=== PATIENT | female | born 1990 | race African-American/Black ===

== ENCOUNTER 2017-09-26 21:48 | Emergency (ER) | payer OTHER ==
[~2017-09-26] VITALS: Ht 162.6 cm; Wt 65.0 kg
[~2017-09-26 21:48] MED LIST: DEPO150I IM
[2017-09-26 21:52] VITALS: BP 122/68; PULSE 83; RESP 16; TEMP 98.7; O2SAT 100
--- NOTE | 2017-09-26 22:44 | PD ---
HPI Chief Complaint: Respiratory Symptoms Time Seen by Provider: 22:23 (João Grullon) Time Seen by Provider: 22:49 (Iram Boss MD) Travel History International Travel<30 days: No Contact w/Intl Traveler<30days: No Traveled to known affect area: No (João Grullon) International Travel<30 days: No Contact w/Intl Traveler<30days: No Traveled to known affect area: No (Iram Boss MD) History of Present Illness HPI 27-year-old female presents for evaluation of dyspnea. She reports that she has been having dyspnea for several months, for started in January 2017. She reports that she was seen multiple times at urgent care centers and was diagnosed with upper respiratory infections. She reports that 2 weeks ago she traveled to [facility] in [place] and was diagnosed with pulmonary embolism. She was started on Eliquis. She reports that initially her symptoms improved but since yesterday she has had somewhat worsening dyspnea. She reports that symptoms are mild to moderate, aggravated by lying down or walking. Associated with some sharp pain in the right posterior thoracic region which is worse with movement. Currently this pain is not present but it was present earlier today. She has also had some cramping discomfort in the left proximal thigh and posterior left knee region. She reports that she had ultrasound of her legs performed [place] [facility] and they were negative for DVT. She denies any cough, congestion, abdominal pain, nausea or vomiting. Denies any recent travel or recent surgery. She is not on any contraceptives. She does endorse tobacco use. She has no other complaints at this time. (João Grullon) [facility] Past Medical History Diminished Hearing: No Immunizations Current: Yes Tetanus Vaccination: < 5 Years Influenza Vaccination: No ?: Unknown LMP: 09/24/17 Menopausal: No : 1 Para: 1 Miscarriage: 0 : 0 (João Grullon) Social History Alcohol Use: No Tobacco Use: Yes Substance Use: No (João Grullon) Allergies-Medications (Allergen,Severity, Reaction): Coded Allergies: *MDRO Multi-Drug Resistant Organism (Verified Allergy, Unknown, 09/26/17) MRSA Reported Meds & Prescriptions Reported Meds & Active Scripts Active Depo-Provera Contraceptive (Medroxyprogesterone Acetate) 150 Mg/Ml Susp 150 Mg IM Q90D (Iram Boss MD) Review of Systems Except as stated in HPI: all other systems reviewed are Neg (João Grullon) Physical Exam Narrative GENERAL: Well-developed well-nourished female no acute distress resting comfortably on hospital bed. SKIN: Warm and dry. HEAD: Atraumatic. Normocephalic. EYES: Pupils equal and round. No scleral icterus. No injection or drainage. ENT: No nasal bleeding or discharge. Mucous membranes pink and moist. NECK: Trachea midline. No JVD. CARDIOVASCULAR: Regular rate and rhythm. No murmur appreciated. RESPIRATORY: No accessory muscle use. Faint expiratory wheezing bilaterally. No crackles. GASTROINTESTINAL: Abdomen soft, non-tender, nondistended. Hepatic and splenic margins not palpable. MUSCULOSKELETAL: No obvious deformities. No clubbing. No cyanosis. No edema. Negative Homans. No reproducible tenderness to palpation in the calves or thighs. 2+ dorsalis pedis pulse bilaterally. No CVA tenderness. NEUROLOGICAL: Awake and alert. No obvious cranial nerve deficits. Motor grossly within normal limits. Normal speech. PSYCHIATRIC: Appropriate mood and affect; insight and judgment normal. (João Grullon) Data Data Last Documented VS Vital Signs Date Time Temp Pulse Resp B/P (MAP) Pulse Ox O2 Delivery O2 Flow Rate FiO2 09/27/17 01:45 09/26/17 21:52 98.7 83 16 100 (Iram Boss MD) Orders Orders Electrocardiogram (09/26/17 22:40) Basic Metabolic Panel (Bmp) (09/26/17 22:40) Complete Blood Count With Diff (09/26/17 22:40) Chest, Single Ap (09/26/17 22:40) Ecg Monitoring (09/26/17 22:40) Iv Access Insert/Monitor (09/26/17 22:40) Oximetry (09/26/17 22:40) Ct Pulmonary Angiogram (09/26/17 22:40) Act Partial Throm Time (Ptt) (09/26/17 22:40) Prothrombin Time / Inr (Pt) (09/26/17 22:40) Ed Urine Pregnancytest Poc (09/26/17 22:40) Us Leg Venous Doppler (09/26/17 22:40) Urinalysis - C+S If Indicated (09/26/17 22:40) Albuterol-Ipratropium Neb (Duoneb Neb) (09/26/17 22:45) Iohexol 350 Inj (Omnipaque 350 Inj) (09/27/17 01:06) Ed Discharge Order (09/27/17 01:18) (Iram Boss MD) Labs Laboratory Tests Test 09/26/17 22:56 09/26/17 23:08 Urine Color YELLOW Urine Turbidity CLEAR Urine pH 6.5 Urine Specific [place] 1.015 Urine Protein NEG mg/dL Urine Glucose (UA) NEG mg/dL Urine Ketones NEG mg/dL Urine Occult Blood NEG Urine Nitrite NEG Urine Bilirubin NEG Urine Urobilinogen LESS THAN 2.0 MG/DL Urine Leukocyte Esterase NEG Urine RBC 2 /hpf Urine WBC 1 /hpf Urine Squamous Epithelial Cells 7 /hpf Urine Mucus FEW /lpf Microscopic Urinalysis Comment CULT NOT INDICATED White Blood Count 6.0 TH/MM3 Red Blood Count 3.78 MIL/MM3 Hemoglobin 11.1 GM/DL Hematocrit 33.2 % Mean Corpuscular Volume 87.9 FL Mean Corpuscular Hemoglobin 29.5 PG Mean Corpuscular Hemoglobin Concent 33.5 % Red Cell Distribution Width 13.7 % Platelet Count 348 TH/MM3 Mean Platelet Volume 8.2 FL Neutrophils (%) (Auto) 80.8 % Lymphocytes (%) (Auto) 14.7 % Monocytes (%) (Auto) 4.3 % Eosinophils (%) (Auto) 0.0 % Basophils (%) (Auto) 0.2 % Neutrophils # (Auto) 4.9 TH/MM3 Lymphocytes # (Auto) 0.9 TH/MM3 Monocytes # (Auto) 0.3 TH/MM3 Eosinophils # (Auto) 0.0 TH/MM3 Basophils # (Auto) 0.0 TH/MM3 CBC Comment DIFF FINAL Differential Comment Prothrombin Time 10.7 SEC Prothromb Time International Ratio 1.1 RATIO Activated Partial Thromboplast Time 24.7 SEC Blood Urea Nitrogen 10 MG/DL Creatinine 0.83 MG/DL Random Glucose 116 MG/DL Calcium Level 8.8 MG/DL Sodium Level 142 MEQ/L Potassium Level 4.1 MEQ/L Chloride Level 107 MEQ/L Carbon Dioxide Level 28.7 MEQ/L Anion Gap 6 MEQ/L Estimat Glomerular Filtration Rate 98 ML/MIN (Iram Boss MD) [facility] Medical Decision Making Medical Screen Exam Complete: Yes Emergency Medical Condition: Yes Medical Record Reviewed: Yes Differential Diagnosis Reactive airway disease, pulmonary embolism, hemothorax, pneumothorax, bronchitis Narrative Course 27-year-old female who reports that she was diagnosed with pulmonary embolism 2 weeks ago at [facility], on Eliquis, presents with increased dyspnea and right posterior thoracic pain since yesterday, currently no pain. She is also had a crampy pain in the left proximal thigh and posterior left knee. Physical examination reveals faint wheezing bilaterally. She is not tachypneic, tachycardic or hypoxic. She will be given DuoNeb therapy. Plan is for basic lab work, chest x-ray, CT pulmonary angiogram, ultrasound left leg. We will attempt to obtain records from [facility]. 2300:At the end of my shift the patient was signed out pending Lab work and imaging studies. (João Grullon) João Grullon Sep 26, 2017 22:44 Iram Boss MD Sep 29, 2017 19:31
[2017-09-26] MEDS ORDERED: RESP: ALBUTEROL 2.5 MG/IPRATROPIUM 0.5 MG NEB (SCH) INH ONE (22:45)
--- NOTE | 2017-09-26 22:56 | RADRPT ---
EXAM DATE/TIME: 09/26/2017 22:45 [facility] COMPARISON: No previous studies available for comparison. INDICATIONS : Chest pain. MEDICAL HISTORY : None. SURGICAL HISTORY : None. ENCOUNTER: Initial ACUITY: 1 day PAIN SCORE: 6/10 LOCATION: Bilateral chest FINDINGS: The lungs are clear without infiltrate, nodule, or mass. There is no appreciable pleural effusion fo r technique. Heart and mediastinum are unremarkable. Thoracic scoliosis is seen convexity towards th e right. CONCLUSION: No acute cardiopulmonary disease. Tanisha Abad MD on September 26, 2017 at 22:53 Board Certified Radiologist. This report was verified electronically.
--- NOTE | 2017-09-26 23:12 | RADRPT ---
EXAM DATE/TIME: 09/26/2017 22:50 [facility] COMPARISON: No previous studies available for comparison. INDICATIONS : Left leg swelling. MEDICAL HISTORY : . MRSA. Leg wound 2012. SURGICAL HISTORY : None. ENCOUNTER: Initial ACUITY: 1 day PAIN SCORE: 3/10 LOCATION: Left leg. TECHNIQUE: Venous ultrasound of the leg was performed from the inguinal ligament to the proximal calf. Real-josé e, color Doppler and spectral tracing, compression and augmentation techniques were used. FINDINGS: There is normal compressibility of the deep venous system from the inguinal region to the proximal ca lf. No echogenic clot is seen in the lumen of the common femoral, femoral, popliteal, and posterior tibial veins. There is a normal response of the venous system to proximal and distal augmentation an d respiration. CONCLUSION: Normal examination. Jeancarlos Martinez MD on September 26, 2017 at 23:10 Board Certified Radiologist. This report was verified electronically.
--- NOTE | 2017-09-26 23:32 | PD ---
Physical Exam Date Seen by Provider: Sep 26, 2017 Time Seen by Provider: 23:30 Narrative GENERAL: Well-developed well-nourished female no acute distress or respiratory distress SKIN: Warm and dry. HEAD: Normocephalic. EYES: No scleral icterus. No injection or drainage. NECK: Supple, trachea midline. No JVD or lymphadenopathy. CARDIOVASCULAR: Regular rate and rhythm without murmurs, gallops, or rubs. RESPIRATORY: Breath sounds equal bilaterally. No accessory muscle use. GASTROINTESTINAL: Abdomen soft, non-tender, nondistended. MUSCULOSKELETAL: No cyanosis, or edema. BACK: Nontender without obvious deformity. No CVA tenderness. Data Data Last Documented VS Vital Signs Date Time Temp Pulse Resp B/P (MAP) Pulse Ox O2 Delivery O2 Flow Rate FiO2 09/26/17 21:52 98.7 83 16 122/68 (86) 100 Orders Orders Electrocardiogram (09/26/17 22:40) Basic Metabolic Panel (Bmp) (09/26/17 22:40) Complete Blood Count With Diff (09/26/17 22:40) Chest, Single Ap (09/26/17 22:40) Ecg Monitoring (09/26/17 22:40) Iv Access Insert/Monitor (09/26/17 22:40) Oximetry (09/26/17 22:40) Ct Pulmonary Angiogram (09/26/17 22:40) Act Partial Throm Time (Ptt) (09/26/17 22:40) Prothrombin Time / Inr (Pt) (09/26/17 22:40) Ed Urine Pregnancytest Poc (09/26/17 22:40) Us Leg Venous Doppler (09/26/17 22:40) Urinalysis - C+S If Indicated (09/26/17 22:40) Albuterol-Ipratropium Neb (Duoneb Neb) (09/26/17 22:45) Iohexol 350 Inj (Omnipaque 350 Inj) (09/27/17 01:06) Ed Discharge Order (09/27/17 01:18) Labs Laboratory Tests Test 09/26/17 22:56 09/26/17 23:08 Urine Color YELLOW Urine Turbidity CLEAR Urine pH 6.5 Urine Specific [place] 1.015 Urine Protein NEG mg/dL Urine Glucose (UA) NEG mg/dL Urine Ketones NEG mg/dL Urine Occult Blood NEG Urine Nitrite NEG Urine Bilirubin NEG Urine Urobilinogen LESS THAN 2.0 MG/DL Urine Leukocyte Esterase NEG Urine RBC 2 /hpf Urine WBC 1 /hpf Urine Squamous Epithelial Cells 7 /hpf Urine Mucus FEW /lpf Microscopic Urinalysis Comment CULT NOT INDICATED White Blood Count 6.0 TH/MM3 Red Blood Count 3.78 MIL/MM3 Hemoglobin 11.1 GM/DL Hematocrit 33.2 % Mean Corpuscular Volume 87.9 FL Mean Corpuscular Hemoglobin 29.5 PG Mean Corpuscular Hemoglobin Concent 33.5 % Red Cell Distribution Width 13.7 % Platelet Count 348 TH/MM3 Mean Platelet Volume 8.2 FL Neutrophils (%) (Auto) 80.8 % Lymphocytes (%) (Auto) 14.7 % Monocytes (%) (Auto) 4.3 % Eosinophils (%) (Auto) 0.0 % Basophils (%) (Auto) 0.2 % Neutrophils # (Auto) 4.9 TH/MM3 Lymphocytes # (Auto) 0.9 TH/MM3 Monocytes # (Auto) 0.3 TH/MM3 Eosinophils # (Auto) 0.0 TH/MM3 Basophils # (Auto) 0.0 TH/MM3 CBC Comment DIFF FINAL Differential Comment Prothrombin Time 10.7 SEC Prothromb Time International Ratio 1.1 RATIO Activated Partial Thromboplast Time 24.7 SEC Blood Urea Nitrogen 10 MG/DL Creatinine 0.83 MG/DL Random Glucose 116 MG/DL Calcium Level 8.8 MG/DL Sodium Level 142 MEQ/L Potassium Level 4.1 MEQ/L Chloride Level 107 MEQ/L Carbon Dioxide Level 28.7 MEQ/L Anion Gap 6 MEQ/L Estimat Glomerular Filtration Rate 98 ML/MIN [facility] Medical Record Reviewed: Yes Supervised Visit with KIARA: Yes Interpretation(s) [id number] hCG: Negative CBC & BMP Diagram 09/26/17 23:08 Calcium Level 8.8 Vital Signs Date Time Temp Pulse Resp B/P (MAP) Pulse Ox O2 Delivery O2 Flow Rate FiO2 09/26/17 21:52 98.7 83 16 122/68 (86) 100 Urinalysis grossly within normal limits Coagulation study values in normal range Last Impressions Lower Extremity Ultrasound 09/26/170 Signed Impressions: Service Date/Time: Tuesday, September 26, 2017 22:50 - CONCLUSION: Normal examination. Jeancarlos Martinez MD Chest X-Ray 09/26/[id number] Signed Impressions: Service Date/Time: Tuesday, September 26, 2017 22:45 - CONCLUSION: No acute cardiopulmonary disease. Tanisha Abad MD CT pulmonary angiogram: CONCLUSION: Mild dextroscoliosis otherwise normal examination. No evidence for pulmonary embolus. Jeancarlos Martinez MD on September 27, 2017 at 1:08 Board Certified Radiologist. This report was verified electronically. Differential Diagnosis Dyspnea pleurisy pneumonia pneumothorax musculoskeletal pain strain sprain DVT PE Narrative Course Medical records collected from [facility]; EKG sinus rhythm rate [address] elevation or injury pattern change; CTA pulmonary angiogram, chest x-ray, ultrasound for DVT studies ordered Patient resting comfortably waiting for imaging studies to be performed 1:16 AM imaging studies reveal no evidence of a pulmonary embolism by CT pulmonary angiogram and no DVT by ultrasound of the labs and imaging studies are found to be grossly within normal range and patient is stable for outpatient management. Patient states he feels well and is very pleased to find out that her CT does not show a blood clot/PE and that her ultrasound studies are negative for DVT. Patient is stable for outpatient management and follow-up with her primary/managing physician. Diagnosis Primary Impression: Musculoskeletal pain Referrals: Primary Care Physician 2 days Patient Instructions: General Instructions Additional Instruction: Continue current medications as presently prescribed Follow-up with your primary care provider May take acetaminophen/Tylenol as needed for minor pain Return to the emergency department for any concerns or change in condition Med/Other Pt SpecificInfo: No Change to Meds Disposition: 01 DISCHARGE HOME Condition: Stable Iram Boss MD Sep 26, 2017 23:32
[2017-09-26 23:36] LABS: BILIRUBIN, URINE NEG (NEG); BLOOD, URINE NEG (NEG); GLUCOSE,URINE NEG (NEG); KETONE, URINE NEG (NEG); MUCUS URINE FEW /lpf (OCC); NITRITE,URINE NEG (NEG); PH, URINE 6.5 (5.0-8.5); SQUAMOUS EPITHELIAL CELL URINE 7 /hpf (0-5); URINE COLOR YELLOW (YELLW/STRAW); URINE LEUKOCYTE ESTERASE NEG (NEG)
[2017-09-26 23:36] LABS: AUTOMATED NEUTROPHIL # 4.9 TH/MM3 (1.8-7.7); BASOPHIL % 0.2 % (0.0-2.0); HEMATOCRIT 33.2 % (35.0-46.0); HEMOGLOBIN 11.1 GM/DL (11.6-15.3); LYMPH % 14.7 % (9.0-44.0); LYMPHOCYTE # 0.9 TH/MM3 (1.0-4.8); MEAN CELL VOLUME 87.9 FL (80.0-100.0); MEAN CORPUSCULAR HEMOGLOBIN 29.5 PG (27.0-34.0); MEAN CORPUSCULAR HGB CONC 33.5 % (32.0-36.0); MEAN PLATELET VOLUME 8.2 FL (7.0-11.0); MONO % 4.3 % (0.0-8.0); MONOCYTE # 0.3 TH/MM3 (0-0.9); NEUT % 80.8 % (16.0-70.0); PLATELET COUNT 348 TH/MM3 (150-450); RED BLOOD COUNT 3.78 MIL/MM3 (4.00-5.30); RED CELL DISTRIBUTION WIDTH 13.7 % (11.6-17.2)
[2017-09-26 23:49] LABS: INTERNATIONAL NORMALIZED RATIO 1.1 RATIO; PROTHROMBIN TIME - PATIENT 10.7 SEC (9.8-11.6)
[2017-09-27 00:16] LABS: BICARBONATE 28.7 MEQ/L (21.0-32.0); CALCIUM 8.8 MG/DL (8.5-10.1); CREATININE 0.83 MG/DL (0.50-1.00)
[2017-09-27] MEDS ORDERED: IOHEXOL 350 MG/ML 10 ML VIAL (for RAD DIAG) IVCONTRAST ONE (01:06)
--- NOTE | 2017-09-27 01:11 | RADRPT ---
EXAM DATE/TIME: 09/27/2017 00:56 [facility] COMPARISON: CHEST SINGLE AP, September 26, 2017, 22:45. INDICATIONS : Shortness of breath; rule out pulmonary embolus. IV CONTRAST: 63 cc Omnipaque 350 (iohexol) IV RADIATION DOSE: 6.34 CTDIvol (mGy) MEDICAL HISTORY : prior PE - found at [facility] SURGICAL HISTORY : None. ENCOUNTER: Initial ACUITY: 1 day PAIN SCALE: 0/10 LOCATION: chest TECHNIQUE: Volumetric scanning of the chest was performed using a pulmonary embolism protocol MIP images were re constructed. Using automated exposure control and adjustment of the mA and/or kV according to patien t size, radiation dose was kept as low as reasonably achievable to obtain optimal diagnostic quality images. DICOM format image data is available electronically for review and comparison. Follow-up recommendations for detected pulmonary nodules are based at a minimum on nodule size and pa tient risk factors according to Fleischner Society Guidelines. FINDINGS: PULMONARY ARTERIES: No filling defects are seen in the pulmonary arteries through the segmental level. LUNGS: There is no consolidation or pneumothorax . No concerning pulmonary nodule is visualized. PLEURAE: There is no pleural thickening or pleural effusion. MEDIASTINUM: There is good visualization of the great vessels of the middle mediastinum. No evidence of mediastin al or hilar adenopathy/mass. MUSCULOSKELETAL: Mild dextroscoliosis. MISCELLANEOUS: The visualized upper abdominal organs demonstrate no acute abnormality. CONCLUSION: Mild dextroscoliosis otherwise normal examination. No evidence for pulmonary embolus. Jeancarlos Martinez MD on September 27, 2017 at 1:08 Board Certified Radiologist. This report was verified electronically.
--- NOTE | 2017-09-27 12:23 | EKG ---
Date Performed: 09/26/2017 Time Performed: 23:27:23 PTAGE: 27 years EKG: Sinus rhythm WITH SINUS ARRHYTHMIA NORMAL ECG NO PREVIOUS TRACING DOCTOR: Samir Hall Interpretating Date/Time 09/27/2017 12:21:54
== END 2017-09-27 02:04 | disposition home or self-care (01) ==
LOC: NEPC 21:48
DX: M79.1 Myalgia (principal); R06.00 Dyspnea, unspecified; M79.652 Pain in left thigh; Z72.0 Tobacco use; Z86.711 Personal history of pulmonary embolism
CPT/HCPCS: 71045; 71275; 80048; 81001; 84703; 85025; 85610; 85730; 93005; 93971; 94664; 99285; Q9967

== ENCOUNTER 2017-11-28 11:27 | Emergency (ER) | payer OTHER ==
[~2017-11-28] VITALS: Ht 167.6 cm; Wt 70.0 kg
[2017-11-28] MEDS ORDERED: IOHEXOL 350 MG/ML 10 ML VIAL (for RAD DIAG) IVCONTRAST ONE (11:28)
[2017-11-28 11:41] VITALS: BP 108/53; PULSE 111; RESP 20; TEMP 99; O2SAT 99
--- NOTE | 2017-11-28 12:07 | PD ---
HPI Chief Complaint: Chest Pain Time Seen by Provider: 11:55 Travel History International Travel<30 days: No Contact w/Intl Traveler<30days: No Traveled to known affect area: No History of Present Illness HPI 27-year-old female presents emergency department for evaluation of chest tightness and shortness of breath started approximately 1 week ago. Patient states that this been a gradual onset and is worsened over the last week since she decided to come to the emergency department today. Patient says the tightness located in the middle of her chest without radiation. States the pain is mild to moderate in severity. Says she does have a history of a blood clot in the lung base that occurred 3 months ago. Patient states that she took a blood thinner for 2 months. Because of the excessive menstrual bleeding and because she has to work and this interferes with her work. Says that she restarted this medication approximately 1 week ago at the onset of symptoms because she believes that this may be related. Says that she was taking Eliquis 5 mg twice a day. Patient is not know why she has blood clots. She denies any history of cardiac, pulmonary or blood disorders. Says she took an aspirin last night and this morning. She denies any fever, chills, cough, congestion. She has no other complaints today. PFSH Past Medical History Diminished Hearing: No Respiratory: Yes (PE) Immunizations Current: Yes ?: Not LMP: 11/15/17 Menopausal: No : 1 Para: 1 Miscarriage: 0 : 0 Social History Alcohol Use: No Tobacco Use: Yes Substance Use: No Allergies-Medications (Allergen,Severity, Reaction): Coded Allergies: *MDRO Multi-Drug Resistant Organism (Verified Allergy, Unknown, 09/26/17) MRSA Reported Meds & Prescriptions Reported Meds & Active Scripts Active Ventolin Hfa 18 GM Inh (Albuterol Sulfate) 90 Mcg/Act Aer 2 Puff INH Q4-6H PRN Xarelto (Rivaroxaban) 20 Mg Tab 20 Mg PO DAILY 30 Days Depo-Provera Contraceptive (Medroxyprogesterone Acetate) 150 Mg/Ml Susp 150 Mg IM Q90D Review of Systems Except as stated in HPI: all other systems reviewed are Neg Physical Exam Narrative GENERAL: Well-developed, well-nourished in no apparent distress, sitting comfortably in bed SKIN: Focused skin assessment warm/dry. HEAD: Atraumatic. Normocephalic. EYES: Pupils equal and round. No scleral icterus. No injection or drainage. ENT: No nasal bleeding or discharge. Mucous membranes pink and moist. NECK: Trachea midline. No JVD. No lymphadenopathy CARDIOVASCULAR: Regular rate and rhythm. No murmur appreciated. RESPIRATORY: No accessory muscle use. Clear to auscultation. Breath sounds equal bilaterally. No CVA tenderness GASTROINTESTINAL: Abdomen soft, non-tender, nondistended. Hepatic and splenic margins not palpable. MUSCULOSKELETAL: No obvious deformities. No clubbing. No cyanosis. No edema. Homans sign negative bilaterally NEUROLOGICAL: Awake and alert. No obvious cranial nerve deficits. Motor grossly within normal limits. Normal speech. PSYCHIATRIC: Appropriate mood and affect; insight and judgment normal. Data Data Last Documented VS Vital Signs Date Time Temp Pulse Resp B/P (MAP) Pulse Ox O2 Delivery O2 Flow Rate FiO2 11/28/17 15:24 62 111/67 (82) 99 11/28/17 11:41 99.0 20 Orders Orders Complete Blood Count With Diff (11/28/17 12:03) Comprehensive Metabolic Panel (11/28/17 12:03) Act Partial Throm Time (Ptt) (11/28/17 12:03) Prothrombin Time / Inr (Pt) (11/28/17 12:03) Magnesium (Mg) (11/28/17 12:03) Troponin I (11/28/17 12:03) Urinalysis - C+S If Indicated (11/28/17 12:03) Electrocardiogram (11/28/17 12:03) Ct Pulmonary Angiogram (11/28/17 12:03) Ed Urine Pregnancytest Poc (11/28/17 13:18) Iohexol 350 Inj (Omnipaque 350 Inj) (11/28/17 11:28) Albuterol-Ipratropium Neb (Duoneb Neb) (11/28/17 15:15) Ed Discharge Order (11/28/17 15:41) Labs Laboratory Tests Test 11/28/17 12:35 White Blood Count 4.2 TH/MM3 Red Blood Count 4.22 MIL/MM3 Hemoglobin 11.9 GM/DL Hematocrit 35.8 % Mean Corpuscular Volume 84.7 FL Mean Corpuscular Hemoglobin 28.2 PG Mean Corpuscular Hemoglobin Concent 33.3 % Red Cell Distribution Width 14.3 % Platelet Count 364 TH/MM3 Mean Platelet Volume 8.3 FL Neutrophils (%) (Auto) 59.4 % Lymphocytes (%) (Auto) 31.3 % Monocytes (%) (Auto) 7.6 % Eosinophils (%) (Auto) 1.1 % Basophils (%) (Auto) 0.6 % Neutrophils # (Auto) 2.5 TH/MM3 Lymphocytes # (Auto) 1.3 TH/MM3 Monocytes # (Auto) 0.3 TH/MM3 Eosinophils # (Auto) 0.0 TH/MM3 Basophils # (Auto) 0.0 TH/MM3 CBC Comment DIFF FINAL Differential Comment Prothrombin Time 10.7 SEC Prothromb Time International Ratio 1.1 RATIO Activated Partial Thromboplast Time 26.8 SEC Urine Color LIGHT-YELLOW Urine Turbidity HAZY Urine pH 7.5 Urine Specific [place] 1.015 Urine Protein NEG mg/dL Urine Glucose (UA) NEG mg/dL Urine Ketones NEG mg/dL Urine Occult Blood NEG Urine Nitrite NEG Urine Bilirubin NEG Urine Urobilinogen LESS THAN 2.0 MG/DL Urine Leukocyte Esterase SMALL Urine RBC LESS THAN 1 /hpf Urine WBC 3 /hpf Urine Squamous Epithelial Cells 16 /hpf Urine Mucus FEW /lpf Microscopic Urinalysis Comment CULT NOT INDICATED Blood Urea Nitrogen 12 MG/DL Creatinine 0.85 MG/DL Random Glucose 80 MG/DL Total Protein 7.5 GM/DL Albumin 3.8 GM/DL Calcium Level 8.9 MG/DL Magnesium Level 2.0 MG/DL Alkaline Phosphatase 67 U/L Aspartate Amino Transf (AST/SGOT) 13 U/L Alanine Aminotransferase (ALT/SGPT) 12 U/L Total Bilirubin 0.3 MG/DL Sodium Level 140 MEQ/L Potassium Level 4.1 MEQ/L Chloride Level 108 MEQ/L Carbon Dioxide Level 26.1 MEQ/L Anion Gap 6 MEQ/L Estimat Glomerular Filtration Rate 96 ML/MIN Troponin I LESS THAN 0.02 NG/ML MDM Medical Decision Making Medical Screen Exam Complete: Yes Emergency Medical Condition: Yes Differential Diagnosis Pulmonary embolism, pneumonia, COPD, asthma Narrative Course 27y female with a history of PE presents to the ED for evaluation of chest pressure and SOB that started 1 week ago. Says she was diagnosed with a PE and was placed on Eliquis. Says she was compliant with this medication for 2 months but stopped because of heavy menses and pill burden. Say she does have a family history of CAD but is unable to specify who and what kind of issues they have. She denies recent travel, surgeries, history of blood disorders, cancer, immobilization. Vital sign- HR 111, BP 108/53, SaO2 99% on RA Physical exam findings are unremarkable. POC negative. I discussed the importance of compliance with the medications. I also discussed the importance of follow-up with a primary care physician for further evaluation and possible etiology of these clots. I also discussed the risks vs benefits of these CTs. She has had 3 scans to evaluate for clots and was positive for 1 of them. After review of the EMR, she last had a CTA September 27 which was negative. Labs are noncontributory. Troponin negative. Last Impressions CT Angiography 11/28/17 1203 Signed Impressions: Service Date/Time: Thursday, November 28, 2017 14:18 - CONCLUSION: 1. No evidence of acute pulmonary embolism. 2. No evidence of acute cardiothymic process. 3. Stable exam compared to recent study in September. Kamran Oneal MD I explained to the patient the importance of taking medications as previously prescribed. Recommend patient follow-up with the primary care physician. Recommend patient follow-up with hematology regarding her previous pulmonary embolism. Patient states understanding will comply. I did change patient to Xarelto at this is once a day and patient does mention that there is a pill burden with the twice a day dosing of Eliquis. Patient says she does feel better after the nebulizer. Will prescribe albuterol inhaler as well as her shortness of breath and chest tightness may be the result of the tobacco use. She indicates that she has used albuterol inhalers previously with good results. I explained that she would still have heavy menses however, I did write a work note indicating that patient may need additional time during the day to prevent menstrual accidents. Referrals: Brigitte Gao MD,Samir SOLIS Departure Forms: Tests/Procedures, Work Release Special Instructions: Pt is on a blood thinner for a medical condition. This may cause increased risk of bleeding and heavier menstrual cycles. Additional Instructions: Follow-up with a burrer machine as discussed. I have named to that she may call for evaluation. Follow-up with [facility] for your care. If your symptoms persist or worsen return to the emergency department. Scripts Albuterol 18 GM Inh (Ventolin Hfa 18 GM Inh) 90 Mcg/Act Aer 2 PUFF INH Q4-6H Y for SHORTNESS OF BREATH, #1 INHALER 0 Refills Prov: Daya Ellison MD 11/28/17 Rivaroxaban (Xarelto) 20 Mg Tab 20 MG PO DAILY for Blood Clot Prevention for 30 Days, #30 TAB 0 Refills Prov: Daya Ellison MD 11/28/17 Disposition: 01 DISCHARGE HOME Condition: Stable Pricilla Lopez Nov 28, 2017 12:06
[2017-11-28 13:12] LABS: AUTOMATED NEUTROPHIL # 2.5 TH/MM3 (1.8-7.7); BASOPHIL % 0.6 % (0.0-2.0); EOSINOPHIL % 1.1 % (0.0-4.0); HEMATOCRIT 35.8 % (35.0-46.0); HEMOGLOBIN 11.9 GM/DL (11.6-15.3); LYMPH % 31.3 % (9.0-44.0); LYMPHOCYTE # 1.3 TH/MM3 (1.0-4.8); MEAN CELL VOLUME 84.7 FL (80.0-100.0); MEAN CORPUSCULAR HEMOGLOBIN 28.2 PG (27.0-34.0); MEAN CORPUSCULAR HGB CONC 33.3 % (32.0-36.0); MEAN PLATELET VOLUME 8.3 FL (7.0-11.0); MONO % 7.6 % (0.0-8.0); MONOCYTE # 0.3 TH/MM3 (0-0.9); NEUT % 59.4 % (16.0-70.0); PLATELET COUNT 364 TH/MM3 (150-450); RED BLOOD COUNT 4.22 MIL/MM3 (4.00-5.30); RED CELL DISTRIBUTION WIDTH 14.3 % (11.6-17.2); WHITE BLOOD COUNT 4.2 TH/MM3 (4.0-11.0)
[2017-11-28 13:20] LABS: INTERNATIONAL NORMALIZED RATIO 1.1 RATIO; PROTHROMBIN TIME - PATIENT 10.7 SEC (9.8-11.6)
[2017-11-28 13:26] LABS: BILIRUBIN, URINE NEG (NEG); BLOOD, URINE NEG (NEG); GLUCOSE,URINE NEG (NEG); KETONE, URINE NEG (NEG); MUCUS URINE FEW /lpf (OCC); NITRITE,URINE NEG (NEG); PH, URINE 7.5 (5.0-8.5); SQUAMOUS EPITHELIAL CELL URINE 16 /hpf (0-5); URINE COLOR LIGHT-YELLOW (YELLW/STRAW); URINE LEUKOCYTE ESTERASE SMALL (NEG)
[2017-11-28 13:33] LABS: ALBUMIN 3.8 GM/DL (3.4-5.0); ALT (GPT) 12 U/L (10-53); AST (GOT) 13 U/L (15-37); BICARBONATE 26.1 MEQ/L (21.0-32.0); BLOOD UREA NITROGEN 12 MG/DL (7-18); CALCIUM 8.9 MG/DL (8.5-10.1); CHLORIDE 108 MEQ/L (98-107); CREATININE 0.85 MG/DL (0.50-1.00); GLOMERULAR FILTRATION RATE 96 ML/MIN (>89); GLUCOSE,RANDOM 80 MG/DL (74-106); SODIUM (NA) 140 MEQ/L (136-145)
[2017-11-28 13:37] LABS: ALKALINE PHOSPHATASE 67 U/L (45-117); TOTAL BILIRUBIN ADULT 0.3 MG/DL (0.2-1.0); TOTAL PROTEIN 7.5 GM/DL (6.4-8.2); TROPONIN I LESS THAN 0.02 NG/ML (0.02-0.05)
--- NOTE | 2017-11-28 14:53 | RADRPT ---
EXAM DATE/TIME: 11/28/2017 14:18 [place] COMPARISON: CT PULMONARY ANGIOGRAM, September 27, 2017, 0:56. INDICATIONS : Chest pain and short of breath for one week. IV CONTRAST: 65 cc Omnipaque 350 (iohexol) IV RADIATION DOSE: 7.95 CTDIvol (mGy) MEDICAL HISTORY : history of pulmonary emboli SURGICAL HISTORY : None. ENCOUNTER: Initial ACUITY: 1 week PAIN SCALE: 6/10 LOCATION: chest TECHNIQUE: Volumetric scanning of the chest was performed using a pulmonary embolism protocol MIP images were re constructed. Using automated exposure control and adjustment of the mA and/or kV according to patien t size, radiation dose was kept as low as reasonably achievable to obtain optimal diagnostic quality images. DICOM format image data is available electronically for review and comparison. Follow-up recommendations for detected pulmonary nodules are based at a minimum on nodule size and pa tient risk factors according to Fleischner Society Guidelines. FINDINGS: PULMONARY ARTERIES: No filling defects are seen in the pulmonary arteries through the segmental level. LUNGS: There is no consolidation or pneumothorax . No concerning pulmonary nodule is visualized. PLEURAE: There is no pleural thickening or pleural effusion. MEDIASTINUM: There is good visualization of the great vessels of the middle mediastinum. No evidence of mediastin al or hilar adenopathy/mass. MUSCULOSKELETAL: Within normal limits for patient age. MISCELLANEOUS: The visualized upper abdominal organs demonstrate no acute abnormality. CONCLUSION: 1. No evidence of acute pulmonary embolism. 2. No evidence of acute cardiothymic process. 3. Stable exam compared to recent study in September. Kamran Oneal MD on November 28, 2017 at 14:49 Board Certified Radiologist. This report was verified electronically.
[2017-11-28] MEDS ORDERED: XARE20TA PO (15:04)
--- NOTE | 2017-11-28 15:05 | PD ---
Physical Exam Date Seen by Provider: Nov 28, 2017 Time Seen by Provider: 13:00 Narrative I, Dr. Ellison, have reviewed the advance practice practitioner's documentation and am in agreement, met with the patient face to face, made the diagnosis, and the medical decision making was done by me. *My assessment and Findings: Patient seen and evaluated with PA, please see PA note for further details. She has history of PE, has been having shortness of breath, concerning for PE. Lab work and CAT scan ordered. Laboratory Tests Test 11/28/17 12:35 Urine Turbidity HAZY (CLEAR) Urine Leukocyte Esterase SMALL (NEG) Urine Mucus FEW /lpf (OCC) Aspartate Amino Transf (AST/SGOT) 13 U/L (15-37) Chloride Level 108 MEQ/L (98-107) Troponin I LESS THAN 0.02 NG/ML Last [address] Angiography 11/28/17 1203 Signed Impressions: Service Date/Time: Thursday, November 28, 2017 14:18 - CONCLUSION: 1. No evidence of acute pulmonary embolism. 2. No evidence of acute cardiothymic process. 3. Stable exam compared to recent study in September. Kamran Oneal MD CAT scan shows no signs of PE. At this point, patient has been encouraged to take her blood thinners. She is at high PE risk considering previous PE. Lab work was otherwise unremarkable. Planning to release her follow-up to primary care doctor. Return for worsening in symptoms as necessary. Data Data Last Documented VS Vital Signs Date Time Temp Pulse Resp B/P (MAP) Pulse Ox O2 Delivery O2 Flow Rate FiO2 11/28/17 13:25 100 11/28/17 11:41 99.0 111 20 108/53 (71) Orders Orders Complete Blood Count With Diff (11/28/17 12:03) Comprehensive Metabolic Panel (11/28/17 12:03) Act Partial Throm Time (Ptt) (11/28/17 12:03) Prothrombin Time / Inr (Pt) (11/28/17 12:03) Magnesium (Mg) (11/28/17 12:03) Troponin I (11/28/17 12:03) Urinalysis - C+S If Indicated (11/28/17 12:03) Electrocardiogram (11/28/17 12:03) Ct Pulmonary Angiogram (11/28/17 12:03) Ed Urine Pregnancytest Poc (11/28/17 13:18) Iohexol 350 Inj (Omnipaque 350 Inj) (11/28/17 11:28) Labs Laboratory Tests Test 11/28/17 12:35 White Blood Count 4.2 TH/MM3 Red Blood Count 4.22 MIL/MM3 Hemoglobin 11.9 GM/DL Hematocrit 35.8 % Mean Corpuscular Volume 84.7 FL Mean Corpuscular Hemoglobin 28.2 PG Mean Corpuscular Hemoglobin Concent 33.3 % Red Cell Distribution Width 14.3 % Platelet Count 364 TH/MM3 Mean Platelet Volume 8.3 FL Neutrophils (%) (Auto) 59.4 % Lymphocytes (%) (Auto) 31.3 % Monocytes (%) (Auto) 7.6 % Eosinophils (%) (Auto) 1.1 % Basophils (%) (Auto) 0.6 % Neutrophils # (Auto) 2.5 TH/MM3 Lymphocytes # (Auto) 1.3 TH/MM3 Monocytes # (Auto) 0.3 TH/MM3 Eosinophils # (Auto) 0.0 TH/MM3 Basophils # (Auto) 0.0 TH/MM3 CBC Comment DIFF FINAL Differential Comment Prothrombin Time 10.7 SEC Prothromb Time International Ratio 1.1 RATIO Activated Partial Thromboplast Time 26.8 SEC Urine Color LIGHT-YELLOW Urine Turbidity HAZY Urine pH 7.5 Urine Specific [place] 1.015 Urine Protein NEG mg/dL Urine Glucose (UA) NEG mg/dL Urine Ketones NEG mg/dL Urine Occult Blood NEG Urine Nitrite NEG Urine Bilirubin NEG Urine Urobilinogen LESS THAN 2.0 MG/DL Urine Leukocyte Esterase SMALL Urine RBC LESS THAN 1 /hpf Urine WBC 3 /hpf Urine Squamous Epithelial Cells 16 /hpf Urine Mucus FEW /lpf Microscopic Urinalysis Comment CULT NOT INDICATED Blood Urea Nitrogen 12 MG/DL Creatinine 0.85 MG/DL Random Glucose 80 MG/DL Total Protein 7.5 GM/DL Albumin 3.8 GM/DL Calcium Level 8.9 MG/DL Magnesium Level 2.0 MG/DL Alkaline Phosphatase 67 U/L Aspartate Amino Transf (AST/SGOT) 13 U/L Alanine Aminotransferase (ALT/SGPT) 12 U/L Total Bilirubin 0.3 MG/DL Sodium Level 140 MEQ/L Potassium Level 4.1 MEQ/L Chloride Level 108 MEQ/L Carbon Dioxide Level 26.1 MEQ/L Anion Gap 6 MEQ/L Estimat Glomerular Filtration Rate 96 ML/MIN Troponin I LESS THAN 0.02 NG/ML MDM Medical Record Reviewed: Yes Supervised Visit with KIARA: Yes Diagnosis Primary Impression: Shortness of breath Disposition: 01 DISCHARGE HOME Condition: Stable Daya Ellison MD Nov 28, 2017 15:05
[2017-11-28 15:19] VITALS: BP 111/67
[2017-11-28] MEDS: RESP: ALBUTEROL 2.5 MG/IPRATROPIUM 0.5 MG NEB (SCH) INH (15:23)
[2017-11-28 15:24] VITALS: BP 111/67
[2017-11-28] MEDS ORDERED: VENTAER INH (15:41)
--- NOTE | 2017-11-29 16:34 | EKG ---
Date Performed: 11/28/2017 Time Performed: 13:06:59 PTAGE: 27 years EKG: Sinus rhythm SLIGHT ST CHANGE OF EARLY REPOLARIZATION PROBABLY WITHIN NORMAL LIMITS FOR AGE Compared to previous tracing, sinus arrhythmia no longer present NORMAL ECG NO PREVIOUS TRACING DOCTOR: Samir Hall Interpretating Date/Time 11/29/2017 16:33:48
== END 2017-11-28 16:00 | disposition home or self-care (01) ==
LOC: NEPC 11:27
DX: R06.02 Shortness of breath (principal); R07.89 Other chest pain; Z86.711 Personal history of pulmonary embolism; Z72.0 Tobacco use; Z79.51 Long term (current) use of inhaled steroids; Z79.899 Other long term (current) drug therapy
CPT/HCPCS: 71275; 80053; 81001; 83735; 84484; 84703; 85025; 85610; 85730; 93005; 94640; 94664; 99284; Q9967